=== PATIENT | female | born 1990 | race American Indian/Alaskan Native ===

== ENCOUNTER 2018-02-21 18:25 | Inpatient (IN) | payer MEDICAID ==
[2018-02-21] MEDS ORDERED: Sodium Chloride 0.9% 1,000 ML IV STA (19:42)
[2018-02-21 19:56] LABS: PH,URINE 6.5 (4.7-8.0); URINE APPEARANCE TURBID (CLEAR); URINE BILIRUBIN NEGATIVE (NEGATIVE); URINE BLOOD MODERATE (NEGATIVE); URINE COLOR YELLOW (YELLOW); URINE GLUCOSE (UA) NEGATIVE (NEGATIVE); URINE LEUKOCYTE ESTERASE SMALL Leu/uL (NEGATIVE); URINE PROTEIN 30 mg/dL (<30 mg/dL); URINE UROBILINOGEN 0.2 E.U./dL (<1 E.U./dL)
[2018-02-21 19:59] LABS: URINE RBC 25 - 30 /hpf (0-2)
[2018-02-21 20:00] LABS: URINE BACTERIA FEW (NEG); URINE WBC 25 - 30 /hpf (0-6)
[2018-02-21 20:12] LABS: BASO # 0.01 K/mm3 (0.0-2.0); BASO % 0.2 % (0.0-3.0); EOS # 0.1 (0.0-0.7); EOS % 1.4 % (1.5-5.0); GRAN # 4.58 (1.4-6.5); HEMOGLOBIN 12.8 g/dL (12.0-16.0); LYMPH # 1.2 (1.2-3.4); LYMPH % 18.1 % (22.0-35.0); MEAN CELL VOLUME 103.4 fl (80.0-105.0); MEAN CORPUSCULAR HEMOGLOBIN 35.9 pg (25.0-35.0); MEAN CORPUSCULAR HGB CONC 34.7 g/dl (31.0-37.0); MEAN PLATELET VOLUME 10.2 fl (7.0-11.0); MONO # 0.5 (0.1-0.6); MONO % 8.3 % (1.0-6.0); RBC 3.57 10^6/uL (3.5-6.1); RED CELL DISTRIBUTION WIDTH 13.6 % (11.5-14.5); WHITE BLOOD COUNT 6.4 10^3/ul (4.5-11.0)
[2018-02-21 20:24] LABS: ALB/GLOB RATIO 1.4 (1.1-1.8); ALBUMIN 4.6 g/dL (3.0-4.8); ALT/SGPT 34 U/L (7-56); AST/SGOT 56 U/L (14-36); BLOOD UREA NITROGEN 7 mg/dL (7-21); CALCIUM 9.6 mg/dL (8.4-10.5); GFR AFRICAN-AMERICAN > 60; GFR NON-AFRICAN AMERICAN > 60; LIPASE 1888 U/L (23-300)
[2018-02-21] MEDS ORDERED: Morphine 4 mg/ml ISec IVP STA (20:29)
[2018-02-21] MEDS ORDERED: Iohexol 350 MG/100 ML VIAL ONE (21:34)
--- NOTE | 2018-02-21 22:40 | ED PDOC ---
Arrival/HPI <Cortez Merchant - Last Filed: 02/21/18 22:59> - General Historian: Patient <Kenya Thomas - Last Filed: 02/22/18 00:03> - General Chief Complaint: Abdominal Pain Time Seen by Provider: 02/21/18 19:42 - History of Present Illness Narrative History of Present Illness (Text): 02/21/18 22:36 27-year-old female presents today with upper abdominal pain for the past 2 days. Patient describes a sharp achy pain with associated nausea and no vomiting. Patient also with 2 days of diarrhea. Patient denies fevers or chills at home. Patient does admit to drinking alcohol regularly. Patient denies any urinary symptoms. Denies bladder or bowel incontinence. Patient complaining of pain to the right upper back. Patient denies chest pain or shortness of breath. Patient denies sick contacts. No other complaints (Kenya Thomas) Past Medical History - Provider Review Nursing Documentation Reviewed: Yes - Travel History Have you recently traveled outside [place] w/in the past 3 mons?: No - Infectious Disease Hx of Infectious Diseases: None - Reproductive Menopause: No - Psychiatric Hx Substance Use: No - Anesthesia Hx Anesthesia: No <Kenya Thomas - Last Filed: 02/22/18 00:03> Family/Social History - Physician Review Nursing Documentation Reviewed: Yes Family/Social History: Unknown Family HX Smoking Status: Current Some Days Smoker Hx Alcohol Use: Yes Frequency of alcohol use: Socially Hx Substance Use: No <Kenya Thomas - Last Filed: 02/22/18 00:03> Allergies/Home Meds <Cortez Merchant - Last Filed: 02/21/18 22:59> <Kenya Thomas - Last Filed: 02/22/18 00:03> Allergies/Adverse Reactions: Allergies No Known Allergies Allergy (Verified 02/21/18 18:43) Home Medications: Home Meds Medication Instructions Recorded Confirmed Loratadine [Claritin] 10 mg PO DAILY 02/21/18 02/21/18 Review of Systems - Review of Systems Constitutional: absent: Fatigue, Fevers Respiratory: absent: SOB, Cough Cardiovascular: absent: Chest Pain, Palpitations Gastrointestinal: Abdominal Pain, Diarrhea, Nausea. absent: Constipation, Vomiting Genitourinary Female: absent: Dysuria, Frequency, Hematuria, Vaginal Bleeding, Vaginal Discharge Musculoskeletal: Back Pain. absent: Arthralgias, Neck Pain Skin: absent: Rash, Pruritis Neurological: absent: Headache, Dizziness Psychiatric: absent: Anxiety, Depression, Suicidal Ideation <Kenya Thomas - Last Filed: 02/22/18 00:03> Physical Exam Vital Signs Reviewed: Yes Temperature: Afebrile Blood Pressure: Normal Pulse: Regular Respiratory Rate: Normal Appearance: Positive for: Well-Appearing, Non-Toxic, Comfortable Pain Distress: None Mental Status: Positive for: Alert and Oriented X 3 - Systems Exam Head: Present: Atraumatic Mouth: Present: Moist Mucous Membranes Neck: Present: Normal Range of Motion Respiratory/Chest: Present: Clear to Auscultation, Good Air Exchange. No: Respiratory Distress, Accessory Muscle Use Cardiovascular: Present: Regular Rate and Rhythm, Normal S1, S2. No: Murmurs Abdomen: Present: Tenderness (Right upper quadrant tenderness, epigastric tenderness, left upper quadrant tenderness), Guarding. No: Distention, Peritoneal Signs, Rebound Back: Present: Normal Inspection, CVA Tenderness (Right sided CVA tenderness) Upper Extremity: Present: Normal ROM Lower Extremity: Present: Normal ROM Neurological: Present: GCS=15, Speech Normal Skin: Present: Warm, Dry, Normal Color. No: Rashes Psychiatric: Present: Alert, Oriented x 3 <Kenya Thomas - Last Filed: 02/22/18 00:03> Vital Signs Temp Pulse Resp BP Pulse Ox 02/21/18 18:56 98.9 F 84 18 131/93 H 99 02/21/18 18:40 98.8 F 77 20 123/89 98 Medical Decision Making <Cortez Merchant - Last Filed: 02/21/18 22:59> <Kenya Thomas - Last Filed: 02/22/18 00:03> ED Course and Treatment: 02/21/18 22:38 Patient is nontoxic well appearing with stable vital signs presenting with abdominal pain CBC wnl CMP K; 3.0 Lipase 1888 Urinalysis + blood, + leukocytes, + wbcs, CAT scan: FINDINGS: Lung bases: No consolidation. ABDOMEN: Liver: There is mild hypodense fatty infiltration of the liver. There is low density identified within the medial segment of the left lobe of the liver adjacent to the falciform ligament. This is a common location for fatty infiltration. Gallbladder and bile ducts: No calcified stones. No ductal dilation. Pancreas: There is stranding of the fat surrounding the pancreatic head, suggestive of acute pancreatitis. Spleen: No splenomegaly. Adrenals: No mass. Kidneys and ureters: No hydronephrosis. No solid mass. Stomach and bowel: There is additional stranding within the right upper quadrant and surrounding the duodenum, consistent with duodenitis. Additional right paracolic stranding is identified, with a small amount of free fluid within the right paracolic gutter. Colonic wall thickening is identified, significant involving the ascending colon and transverse colon. This is consistent with colitis. Appendix: No findings to suggest acute appendicitis. PELVIS: Bladder: There is mild wall thickening of the bladder, with increased trabeculation anteriorly. There is mild stranding of the fat surrounding the bladder. Cystitis is suggested. Reproductive: Hypodense follicles or small cysts are identified within the ovaries bilaterally. ABDOMEN and PELVIS: Intraperitoneal space: There is a small amount of free fluid within the pelvis. Bones/joints: A transitional vertebral body is identified at the lumbosacral junction. Soft tissues: There is minimal herniation of fat into the umbilicus. Vasculature: No abdominal aortic aneurysm. Lymph nodes: No enlarged lymph nodes. IMPRESSION: 1. There is stranding of the fat surrounding the pancreatic head, suggestive of acute pancreatitis. 2. There is additional stranding within the right upper quadrant and surrounding the duodenum, consistent with duodenitis. 3. Additional right paracolic stranding is identified, with a small amount of free fluid within the right paracolic gutter. Colonic wall thickening is identified, most significant involving the ascending colon and transverse colon. This is consistent with colitis. 4. There is mild wall thickening of the bladder, with increased trabeculation anteriorly. There is mild stranding of the fat surrounding the bladder. Cystitis is suggested. 5. Hypodense follicles or small cysts are identified within the ovaries bilaterally. 6. There is a small amount of free fluid within the pelvis. 7. There is mild hypodense fatty infiltration of the liver. 8. Incidental/non-acute findings are described above. Patient reassessment: pt feeling better; still with pain; blood cultures pending rocephin and flagyl started IV Discussed all results with patient in depth case discussed with dr. harrison; accepts admission. Impression: Pancreatitis, colitis, duodenitis, cystitis , Abdominal pain Admitted to [facility] ([facility]) - Lab Interpretations Lab Results: 02/21/18 19:55 02/21/18 19:55 Lab Results 02/21/18 19:55: WBC 6.4, RBC 3.57, Hgb 12.8, Hct 36.9, MCV 103.4, MCH 35.9 H, MCHC 34.7, RDW 13.6, Plt Count 150, MPV 10.2, Gran % 72.0 H, Lymph % (Auto) 18.1 L, [place] % (Auto) 8.3 H, Eos % (Auto) 1.4 L, Baso % (Auto) 0.2, Gran # 4.58 , Lymph # (Auto) 1.2, [place] # (Auto) 0.5, Eos # (Auto) 0.1, Baso # (Auto) 0.01 02/21/18 19:55: Sodium 140, Potassium 3.0 L, Chloride 101, Carbon Dioxide 26, Anion Gap 15, BUN 7, Creatinine 0.6 L, Est GFR ( Amer) > 60, Est GFR (Non -Af Amer) > 60, Random Glucose 100, Calcium 9.6, Total Bilirubin 1.0, AST 56 H, ALT 34, Alkaline Phosphatase 70, Total Protein 7.8, Albumin 4.6, Globulin 3.2, Albumin/Globulin Ratio 1.4, Lipase 1888 H 02/21/18 19:45: Urine Color Yellow, Urine Appearance Turbid, Urine pH 6.5, Ur Specific [place] 1.025, Urine Protein 30 H, Urine Glucose (UA) Negative, Urine Ketones Negative, Urine Blood Moderate H, Urine Nitrate Positive H, Urine Bilirubin Negative, Urine Urobilinogen 0.2, Ur Leukocyte Esterase Small H, Urine RBC 25 - 30, Urine WBC 25 - 30, Ur Epithelial Cells 6 - 8, Urine Bacteria Few - RAD Interpretation Radiology Orders: 02/21/18 20:29 ABD & PELVIS IV CONTRAST ONLY [CT] Stat - Medication Orders Current Medication Orders: Discontinued Medications Sodium Chloride (Sodium Chloride 0.9%) 1,000 mls @ 999 mls/hr IV .Q1H1M STA Stop: 02/21/18 20:42 Last Admin: 02/21/18 19:55 Dose: 999 mls/hr eMAR Start Stop Document 02/21/18 19:55 RG (Rec: 02/21/18 20:08 [id number]) Intravenous Solution Start Date 02/21/18 Start Time 19:55 Metronidazole (Flagyl) 500 mg in 100 mls @ 100 mls/hr IVPB STAT STA PRN Reason: Protocol Stop: 02/21/18 23:56 Ceftriaxone Sodium (Rocephin 1 Gram Ivpb) 1 gm in 100 mls @ 200 mls/hr IVPB STAT STA PRN Reason: Protocol Stop: 02/21/18 23:25 Last Admin: 02/21/18 23:54 Dose: 200 mls/hr eMAR Start Stop Document 02/21/18 23:54 RG (Rec: 02/21/18 23:54 [id number]) Intravenous Solution Start Date 02/21/18 Start Time 23:54 Morphine Sulfate (Morphine) 4 mg IVP STAT STA Stop: 02/21/18 20:30 Last Admin: 02/21/18 22:00 Dose: 4 mg MAR Pain Assessment Document 02/21/18 22:00 RG (Rec: 02/21/18 22:07 [id number]) Pain Reassessment Is this a pain reassessment? Yes IVP Administration Document 02/21/18 22:00 RG (Rec: 02/21/18 22:07 [id number]) Charges for Administration # of IVP Administrations 1 Ondansetron HCl (Zofran Inj) 4 mg IVP STAT STA Stop: 02/21/18 20:30 Last Admin: 02/21/18 20:45 Dose: 4 mg IVP Administration Document 02/21/18 20:45 RG (Rec: 02/21/18 23:54 [id number]) Charges for Administration # of IVP Administrations 1 Potassium Chloride (K-Dur 20 Meq Er Tab) 40 meq PO STAT STA Stop: 02/21/18 22:42 Last Admin: 02/21/18 23:52 Dose: 40 meq - PA / [employer] / Resident Statement RICK has reviewed & agrees with the documentation as recorded. RICK has examined the patient and agrees with the treatment plan. <Cortez Merchant - Last Filed: 02/21/18 22:59> Disposition/Present on Arrival <Cortez Merchant Filed: 02/21/18 22:59> - Present on Arrival Any Indicators Present on Arrival: No History of DVT/PE: No History of Uncontrolled Diabetes: No Urinary Catheter: No History of Decub. Ulcer: No History Surgical Site Infection Following: None - Disposition Have Diagnosis and Disposition been Completed?: Yes Disposition Time: 00:03 Patient Plan: Admission <Kenya Thomas - Last Filed: 02/22/18 00:03> - Disposition Diagnosis: Pancreatitis, Colitis, Duodenitis, Cystitis Disposition: HOSPITALIZED Condition: FAIR
[2018-02-21] MEDS ORDERED: Potassium Chloride 20 mEq ER Tab PO STA (22:41)
--- NOTE | 2018-02-21 22:52 | CT ---
EXAM: CT Abdomen and Pelvis With Intravenous Contrast EXAM DATE/TIME: 02/21/2018 8:29 PM CLINICAL HISTORY: The patient age is 27 years old and is female; Pain; Abdominal pain; Acute; Additional info: Abd pain Facility exam id and description: Ct abdpelciv abd pelvis iv contrast only TECHNIQUE: Axial computed tomography images of the abdomen and pelvis with intravenous contrast. All CT scans at this facility use one or more dose reduction techniques, viz.: automated exposure control; ma/kV adjustment per patient size (including targeted exams where dose is matched to indication; i.e. head); or iterative reconstruction technique. Coronal and sagittal reformatted images were created and reviewed. CONTRAST: 100 mL of OMNI 350 administered intravenously. COMPARISON: No relevant prior studies available. FINDINGS: Lung bases: No consolidation. ABDOMEN: Liver: There is mild hypodense fatty infiltration of the liver. There is low density identified within the medial segment of the left lobe of the liver adjacent to the falciform ligament. This is a common location for fatty infiltration. Gallbladder and bile ducts: No calcified stones. No ductal dilation. Pancreas: There is stranding of the fat surrounding the pancreatic head, suggestive of acute pancreatitis. Spleen: No splenomegaly. Adrenals: No mass. Kidneys and ureters: No hydronephrosis. No solid mass. Stomach and bowel: There is additional stranding within the right upper quadrant and surrounding the duodenum, consistent with duodenitis. Additional right paracolic stranding is identified, with a small amount of free fluid within the right paracolic gutter. Colonic wall thickening is identified, significant involving the ascending colon and transverse colon. This is consistent with colitis. Appendix: No findings to suggest acute appendicitis. PELVIS: Bladder: There is mild wall thickening of the bladder, with increased trabeculation anteriorly. There is mild stranding of the fat surrounding the bladder. Cystitis is suggested. Reproductive: Hypodense follicles or small cysts are identified within the ovaries bilaterally. ABDOMEN and PELVIS: Intraperitoneal space: There is a small amount of free fluid within the pelvis. Bones/joints: A transitional vertebral body is identified at the lumbosacral junction. Soft tissues: There is minimal herniation of fat into the umbilicus. Vasculature: No abdominal aortic aneurysm. Lymph nodes: No enlarged lymph nodes. IMPRESSION: 1. There is stranding of the fat surrounding the pancreatic head, suggestive of acute pancreatitis. 2. There is additional stranding within the right upper quadrant and surrounding the duodenum, consistent with duodenitis. 3. Additional right paracolic stranding is identified, with a small amount of free fluid within the right paracolic gutter. Colonic wall thickening is identified, most significant involving the ascending colon and transverse colon. This is consistent with colitis. 4. There is mild wall thickening of the bladder, with increased trabeculation anteriorly. There is mild stranding of the fat surrounding the bladder. Cystitis is suggested. 5. Hypodense follicles or small cysts are identified within the ovaries bilaterally. 6. There is a small amount of free fluid within the pelvis. 7. There is mild hypodense fatty infiltration of the liver. 8. Incidental/non-acute findings are described above.
[2018-02-21] MEDS ORDERED: cefTRIAXone 1 gm 1 GM/100 ML BAG IVPB STA (22:56)
[2018-02-21] MEDS ORDERED: metroNIDAZOLE IV 500 mg/100 ml 500 MG/100 ML BAG IVPB STA (22:57)
[2018-02-22] MEDS ORDERED: Sodium Chloride 0.9% 1,000 ML IV SCH
--- NOTE | 2018-02-22 00:09 | CP.PCM.HP ---
<Cat Navarro - Last Filed: 02/22/18 06:09> History of Present Illness - History of Present Illness History of Present Illness: Cat Navarro, PGY1, H&P for Dr Preciado: CC: epigastric pain 27-year-old female presents with hx of endometriosis, presents for epigastric pain for past 2 days. Pt describes it as stabbing in nature, occurred while lying in bed, radiating to the back, has associated poor appetite as pain is associated with eating, 2-3 episodes of watery, nonbloody diarrhea and lower abdominal pain. Patient's diet mostly consists of fried foods. Denies nausea, vomiting, fever, chills, cp, sob, dysuria, hematuria, leg swelling, headache, neck pain. Reports mild urinary frequency. Denies sick contacts or unusual foods. Pt recently moved from [place] a month ago. No prior EGD or colonoscopy. Pt denies prior such episodes. In ED, afebrile, other vitals stable. K 3.0, lipase 1888, AST 56, UA+ mild infection. CT abd pelvis showed acute pancreatitis, colitis, duodenitis, cystitis. Given flagyl, rocephin, morphine, zofran, 1L NS bolus, Kdur 40 LMP: 02/05/2018, regular currently, lasting 3-4 days 12 point ROS obtained and negative, except as per HPI. PMH: endometrisosis (dx at age 12) PSH: denies NKA FH: DM SH: Lives with son. heavy ETOH use, 1 pint white liquor/day for past month, more increased than her usual, drinker for past 8 years. Denies tobacco or illicit drug use. PMD: none Present on Admission - Present on Admission Any Indicators Present on Admission: No History of DVT/PE: No History of Uncontrolled Diabetes: No Urinary Catheter: No Decubitus Ulcer Present: No Review of Systems - Review of Systems All systems: reviewed and no additional remarkable complaints except Review of Systems: as per HPI Past Patient History - Infectious Disease Hx of Infectious Diseases: None - Past Social History Smoking Status: Current Some Days Smoker - PSYCHIATRIC Hx Substance Use: No - SURGICAL HISTORY Hx Surgeries: No - ANESTHESIA Hx Anesthesia: No Meds Allergies/Adverse Reactions: Allergies Allergy/AdvReac Type Severity Reaction Status Date / Time No Known Allergies Allergy Verified 02/21/18 18:43 Physical Exam - Constitutional Appears: Non-toxic, No Acute Distress - Head Exam Head Exam: ATRAUMATIC, NORMOCEPHALIC - Eye Exam Eye Exam: EOMI, PERRL. absent: Conjunctival injection, Nystagmus, Scleral icterus Pupil Exam: NORMAL ACCOMODATION, PERRL. absent: Fixed, Irregular, Miosis, Mydriatic, Unequal - ENT Exam ENT Exam: Mucous Membranes Moist - Neck Exam Neck exam: Positive for: Full Rom - Respiratory Exam Respiratory Exam: Clear to Auscultation Bilateral, NORMAL BREATHING PATTERN. absent: Accessory Muscle Use, Chest Wall Tenderness, Rales, Rhonchi, Wheezes, Stridor - Cardiovascular Exam Cardiovascular Exam: RRR, +S1, +S2. absent: Bradycardia, Tachycardia, Rubs, Systolic Murmur - GI/Abdominal Exam GI & Abdominal Exam: Hypoactive Bowel Sounds, Soft, Tenderness (Mild TTP diffusely in abdomen, especially epigastric and lower abdominal areas). absent : Distended, Firm, Guarding, Mass, Organomegaly, Rebound, Rigid - Extremities Exam Extremities exam: Positive for: normal inspection. Negative for: calf tenderness, pedal edema - Back Exam Back exam: NORMAL INSPECTION. absent: CVA tenderness (L), CVA tenderness (R) - Neurological Exam Neurological exam: Alert, Oriented x3 - Psychiatric Exam Psychiatric exam: Normal Affect, Normal Mood - Skin Skin Exam: Dry, Normal Color, Warm Results - Vital Signs Recent Vital Signs: Last Vital Signs Temp 98.9 F 02/21/18 18:56 Pulse 84 02/21/18 18:56 Resp 18 02/21/18 18:56 BP 131/93 H 02/21/18 18:56 Pulse Ox 99 02/21/18 18:56 - Labs Result Diagrams: 02/21/18 19:55 02/21/18 19:55 Assessment & Plan - Assessment and Plan (Free Text) Assessment: 27 year old female with hx of endometriosis (dx at age 9), presents for epigastric and lower abdominal pain: Epigastric pain: 2/2 acute pancreatitis (likely 2/2 alcohol vs hyperlipidemia? vs less likely gallstones) vs duodenitis - NPO - CT abd pelvis: stranding of the fat surrounding the pancreatic head, suggestive of acute pancreatitis. stranding within the right upper quadrant and surrounding the duodenum, consistent with duodenitis. - 1L NS bolus in ED. IVF at 150 - Pain control - daily cbc, cmp - lipid panel - replace lytes as needed - RUQ US - Rocephin and Flagyl Lower abdominal pain: 2/2 colitis vs UTI - CT abd pelvis: right paracolic stranding is identified, with a small amount of free fluid within the right paracolic gutter. Colonic wall thickening is identified, most significant involving the ascending colon and transverse colon. This is consistent with colitis. mild wall thickening of the bladder, with increased trabeculation anteriorly. There is mild stranding of the fat surrounding the bladder. a small amount of free fluid within the pelvis. Cystitis is suggested. mild hypodense fatty infiltration of the liver. - UA + infection - Rocephin and Flagyl - GI consulted. F/u recs. - NPO Fatty infiltration of liver: - AST:ALT ratio 2:1 - likely alcohol induced - avoid hepatotoxic drugs - RUQ US - hep panel Hx of alcohol abuse: - Last drink reportedly Tuesday. No withdrawals noted - Advised cessation PPX: protonix, SCDs Discussed with Dr Preciado. - Date & Time Date: 02/22/18 Time: 00:46 <Marylin Preciado - Last Filed: 02/22/18 06:15> Results - Vital Signs Recent Vital Signs: Last Vital Signs Temp 98.1 F 02/22/18 00:00 Pulse 74 02/22/18 00:00 Resp 16 02/22/18 00:00 BP 137/90 02/22/18 00:00 Pulse Ox 100 02/22/18 00:00 - Labs Result Diagrams: 02/21/18 19:55 02/21/18 19:55 Labs: Laboratory Results - last 24 hr 02/22/18 00:20 Urine Opiates Screen Negative Urine Methadone Screen Negative Ur Barbiturates Screen Negative Ur Phencyclidine Scrn Negative Ur Amphetamines Screen Negative U Benzodiazepines Scrn Negative U Oth Cocaine Metabols Negative U Cannabinoids Screen Negative Attending/Attestation - Attestation I have personally seen and examined this patient.: Yes I have fully participated in the care of the patient.: Yes I have reviewed all pertinent clinical information: Yes Notes (Text): 02/22/18 06:12 Agree with documentation and orders placed.
[2018-02-22 02:29] LABS: BARBITURATES, UR NEGATIVE (NEGATIVE); BENZODIAZEPINES, UR NEGATIVE (NEGATIVE); OPIATES, UR NEGATIVE (NEGATIVE); PHENCYCLIDINE, UR NEGATIVE (NEGATIVE)
[2018-02-22] MEDS: metroNIDAZOLE IV 500 mg/100 ml 500 MG/100 ML BAG IVPB SCH ×2 (05:53→13:28)
[2018-02-22 07:45] VITALS: RESP 20
--- NOTE | 2018-02-22 08:42 | CP.PCM.CON ---
<Antonio Negron - Last Filed: 02/22/18 08:29> History of Present Illness - History of Present Illness History of Present Illness: PGY4 Initial GI Consult Paige Summers Awilda Choe is a 27F w/ hx of ETOH use who presents to the hospital with complaints of abd pain. Pt states that the pain started a few days and ago. She states that the pain is located in the epigastric area, radiating to the back and lowr abd. She states that she has been drinking at least 1 pint of vodka daily for the past month. She denies any previous hospitalizations for pancreas and liver related issues. Currently in the morning , she notes that her abd pain has improved, but still present. Denies any nausea , vomiting or diarrhea. PMHx: None PSHx: none Family hx: reviewed; denies any hx of GI malignancies Social Hx: +ETOH 1 pint daily. + smoking, rec marijuana Endo hx: denies ROS: 12 point ROS conducted, neg other than above Past Patient History - Infectious Disease Hx of Infectious Diseases: None - Past Social History Smoking Status: Current Some Days Smoker - CARDIAC Hx Cardiac Disorders: No - PULMONARY Hx Respiratory Disorders: No - NEUROLOGICAL Hx Neurological Disorder: No - HEENT Hx HEENT Problems: No - RENAL Hx Chronic Kidney Disease: No - ENDOCRINE/METABOLIC Hx Endocrine Disorders: No - HEMATOLOGICAL/ONCOLOGICAL Hx Blood Disorders: No - INTEGUMENTARY Hx Dermatological Problems: No - MUSCULOSKELETAL/RHEUMATOLOGICAL Hx Musculoskeletal Disorders: No Hx Falls: No - GASTROINTESTINAL Hx Gastrointestinal Disorders: No - GENITOURINARY/GYNECOLOGICAL Hx Genitourinary Disorders: No - PSYCHIATRIC Hx Substance Use: No - SURGICAL HISTORY Hx Surgeries: No - ANESTHESIA Hx Anesthesia: No Meds Allergies/Adverse Reactions: Allergies Allergy/AdvReac Type Severity Reaction Status Date / Time No Known Allergies Allergy Verified 02/21/18 18:43 - Medications Medications: Current Medications Metronidazole (Flagyl) 500 mg in 100 mls @ 100 mls/hr IVPB Q8 JONE PRN Reason: Protocol Last Admin: 02/22/18 05:53 Dose: 100 mls/hr Ceftriaxone Sodium (Rocephin 1 Gram Ivpb) 1 gm in 100 mls @ 100 mls/hr IVPB DAILY JONE PRN Reason: Protocol Sodium Chloride (Sodium Chloride 0.9%) 1,000 mls @ 200 mls/hr IV .Q5H JONE Ketorolac Tromethamine (Toradol) 15 mg IVP Q4H PRN PRN Reason: Pain, moderate (4-7) Last Admin: 02/22/18 05:53 Dose: 15 mg Pantoprazole Sodium (Protonix Inj) 40 mg IVP DAILY [facility] Physical Exam - Constitutional Appears: Well, No Acute Distress - Head Exam Head Exam: ATRAUMATIC, NORMOCEPHALIC - Eye Exam Eye Exam: Normal appearance - ENT Exam ENT Exam: Mucous Membranes Moist, Normal Exam - Neck Exam Neck exam: Positive for: Normal Inspection - Respiratory Exam Respiratory Exam: Clear to Auscultation Bilateral, NORMAL BREATHING PATTERN. absent: Chest Wall Tenderness, Decreased Breath Sounds, Rales, Rhonchi, Wheezes , Respiratory Distress - Cardiovascular Exam Cardiovascular Exam: REGULAR RHYTHM, +S1, +S2 - GI/Abdominal Exam GI & Abdominal Exam: Normal Bowel Sounds, Soft, Tenderness. absent: Distended, Firm, Guarding, Rebound, Rigid - Neurological Exam Neurological exam: Alert, Oriented x3 - Psychiatric Exam Psychiatric exam: Normal Affect, Normal Mood - Skin Skin Exam: Dry, Intact, Normal Color, Warm Results - Vital Signs Recent Vital Signs: Last Vital Signs Temp 98.1 F 02/22/18 07:44 Pulse 65 02/22/18 07:44 Resp 20 02/22/18 07:44 BP 119/90 02/22/18 07:44 Pulse Ox 98 02/22/18 07:44 - Labs Result Diagrams: 02/21/18 19:55 02/21/18 19:55 Labs: Laboratory Results - last 24 hr 02/22/18 00:20 Urine Opiates Screen Negative Urine Methadone Screen Negative Ur Barbiturates Screen Negative Ur Phencyclidine Scrn Negative Ur Amphetamines Screen Negative U Benzodiazepines Scrn Negative U Oth Cocaine Metabols Negative U Cannabinoids Screen Negative Assessment & Plan - Assessment and Plan (Free Text) Assessment: This pt is a 27F w/ no hx of ETOH use who presents to the office with abd in the epigastric area Pancreatitis, likely 2/2 ETOH; r/o cholelithiasis, choledolcalithiasis ETOH abuse Plan: -start liquid diet, can advance as tolerated -Abd U/S pending -continue IV fluids -pain management as per primary team -will send for TG -no new medications -discussed ETOH avoidance D/W Dr. Avila <[email or web address] Y - Last Filed: 02/22/18 14:11> Meds - Medications Medications: Current Medications Metronidazole (Flagyl) 500 mg in 100 mls @ 100 mls/hr IVPB Q8 JONE PRN Reason: Protocol Last Admin: 02/22/18 13:28 Dose: 100 mls/hr Ceftriaxone Sodium (Rocephin 1 Gram Ivpb) 1 gm in 100 mls @ 100 mls/hr IVPB DAILY JONE PRN Reason: Protocol Last Admin: 02/22/18 10:41 Dose: 100 mls/hr Sodium Chloride (Sodium Chloride 0.9%) 1,000 mls @ 200 mls/hr IV .Q5H JONE Ketorolac Tromethamine (Toradol) 15 mg IVP Q4H PRN PRN Reason: Pain, moderate (4-7) Last Admin: 02/22/18 10:41 Dose: 15 mg Pantoprazole Sodium (Protonix Inj) 40 mg IVP DAILY [facility] Last Admin: 02/22/18 10:36 Dose: 40 mg Results - Vital Signs Recent Vital Signs: Last Vital Signs Temp 98.1 F 02/22/18 07:44 Pulse 65 02/22/18 07:44 Resp 20 02/22/18 07:44 BP 119/90 02/22/18 07:44 Pulse Ox 98 02/22/18 07:44 - Labs Result Diagrams: 02/22/18 09:30 02/22/18 09:30 Labs: Laboratory Results - last 24 hr 02/22/18 02/22/18 02/22/18 00:20 09:30 09:30 WBC 5.4 RBC 3.29 L Hgb 11.7 L Hct 34.4 L MCV 104.6 MCH 35.6 H MCHC 34.0 RDW 13.8 Plt Count 151 MPV 10.5 Gran % 60.5 Lymph % (Auto) 27.5 [place] % (Auto) 9.2 H Eos % (Auto) 2.6 Baso % (Auto) 0.2 Gran # 3.28 Lymph # (Auto) 1.5 [place] # (Auto) 0.5 Eos # (Auto) 0.1 Baso # (Auto) 0.01 Sodium 141 Potassium 3.2 L Chloride 106 Carbon Dioxide 26 Anion Gap 12 BUN 6 L Creatinine 0.6 L Est GFR ( Amer) > 60 Est GFR (Non-Af Amer) > 60 Random Glucose 93 Calcium 8.9 Magnesium Total Bilirubin 0.8 AST 46 H ALT 32 Alkaline Phosphatase 61 Total Protein 7.2 Albumin 4.2 Globulin 3.0 Albumin/Globulin Ratio 1.4 Triglycerides 54 Cholesterol 173 LDL Cholesterol Direct 64 HDL Cholesterol 96 H Urine Opiates Screen Negative Urine Methadone Screen Negative Ur Barbiturates Screen Negative Ur Phencyclidine Scrn Negative Ur Amphetamines Screen Negative U Benzodiazepines Scrn Negative U Oth Cocaine Metabols Negative U Cannabinoids Screen Negative 02/22/18 10:00 WBC RBC Hgb Hct MCV MCH MCHC RDW Plt Count MPV Gran % Lymph % (Auto) [place] % (Auto) Eos % (Auto) Baso % (Auto) Gran # Lymph # (Auto) [place] # (Auto) Eos # (Auto) Baso # (Auto) Sodium Potassium Chloride Carbon Dioxide Anion Gap BUN Creatinine Est GFR ( Amer) Est GFR (Non-Af Amer) Random Glucose Calcium Magnesium 1.7 Total Bilirubin AST ALT Alkaline Phosphatase Total Protein Albumin Globulin Albumin/Globulin Ratio Triglycerides Cholesterol LDL Cholesterol Direct HDL Cholesterol Urine Opiates Screen Urine Methadone Screen Ur Barbiturates Screen Ur Phencyclidine Scrn Ur Amphetamines Screen U Benzodiazepines Scrn U Oth Cocaine Metabols U Cannabinoids Screen Attending/Attestation - Attestation I have personally seen and examined this patient.: Yes I have fully participated in the care of the patient.: Yes I have reviewed all pertinent clinical information: Yes Notes (Text): 02/22/18 14:05 I have seen and examined patient with GI fellow. Agree with above documentation with the following additions. In brief, this is a 27 year old female with history of recent ETOH abuse who presents to hospital with complaint of sharp epigastric/right sided abdominal pain which began 3 days ago. She describes the pain as 10/10 intensity with radiation to back and worse after meal consumption. She admits to recent daily ETOH consumption for the past month and consumes 1 pint of liquor daily related to life stressors. She denies associated nausea, vomiting, fever/chills, weight loss, or change in bowel habits. No prior hospitalization for similar issues. No prior endoscopic evaluation. Review of vitals from today are normal. Additional physical examination: Abdomen: no palpable hepato/splenomegaly Abdominal pain Acute ETOH pancreatitis CT imaging reviewed by me showing jessica-pancreatic edema with stranding predominantly at HOP. Also noted is colitis, though likely reactive inflammatory response from pancreatitis. - Liquid diet as tolerated - IVF hydration, pain control, supportive care - Follow up results of abdominal US, rule out cholelithiasis - No clinical indication for antibiotic therapy, would discontinue. Colitis present on imaging likely reactive inflammatory response. - ETOH cessation counseling - Will continue to monitor patient clinical course
--- NOTE | 2018-02-22 09:41 | US ---
HISTORY: RUQ abdominal US, pancreatitis COMPARISON: None. TECHNIQUE: Sonographic evaluation of the abdomen. FINDINGS: LIVER: Measures 17.2 cm. Patent portal vein. Portal venous flow: Hepatopetal. Unremarkable echogenicity of the liver parenchyma. No mass. No intrahepatic bile duct dilatation. GALLBLADDER: Unremarkable. No gallstones. COMMON BILE DUCT: Measures 3.9 mm. No stones. No dilatation. PANCREAS: Unremarkable as visualized. No mass. No ductal dilatation. RIGHT KIDNEY: Measures 4.3 x 10.9cm. Normal echogenicity. No calculus, mass, or hydronephrosis. LEFT KIDNEY: Measures 5.2 x 10.7cm. Normal echogenicity. No calculus, mass, or hydronephrosis. SPLEEN: Normal in size and contour. No mass. AORTA: No aneurysmal dilatation. IVC: Unremarkable. OTHER FINDINGS: None. IMPRESSION: Unremarkable abdominal sonogram.
[2018-02-22 09:45] LABS: ALB/GLOB RATIO 1.4 (1.1-1.8); ALBUMIN 4.2 g/dL (3.0-4.8); ALT/SGPT 32 U/L (7-56); AST/SGOT 46 U/L (14-36); BASO # 0.01 K/mm3 (0.0-2.0); BASO % 0.2 % (0.0-3.0); BLOOD UREA NITROGEN 6 mg/dL (7-21); CALCIUM 8.9 mg/dL (8.4-10.5); EOS # 0.1 (0.0-0.7); EOS % 2.6 % (1.5-5.0); GFR AFRICAN-AMERICAN > 60; GFR NON-AFRICAN AMERICAN > 60; GRAN # 3.28 (1.4-6.5); GRAN % 60.5 % (50.0-68.0); HDL CHOLESTEROL 96 mg/dL (29-60); HEMOGLOBIN 11.7 g/dL (12.0-16.0); LYMPH # 1.5 (1.2-3.4); LYMPH % 27.5 % (22.0-35.0); MEAN CELL VOLUME 104.6 fl (80.0-105.0); MEAN CORPUSCULAR HEMOGLOBIN 35.6 pg (25.0-35.0); MEAN PLATELET VOLUME 10.5 fl (7.0-11.0); MONO # 0.5 (0.1-0.6); MONO % 9.2 % (1.0-6.0); RBC 3.29 10^6/uL (3.5-6.1); RED CELL DISTRIBUTION WIDTH 13.8 % (11.5-14.5); WHITE BLOOD COUNT 5.4 10^3/ul (4.5-11.0)
[2018-02-22 09:56] LABS: LDL CHOLESTEROL 64 mg/dL (0-129)
[2018-02-22] MEDS ORDERED: Potassium Chloride 40 mEq/30 ml LIQ UD PO ONE (10:00)
[2018-02-22] MEDS: cefTRIAXone 1 gm 1 GM/100 ML BAG IVPB SCH (10:41)
[2018-02-22 12:30] LABS: HEPATITIS B SURFACE AG Negative (NEGATIVE)
[2018-02-22 12:36] LABS: HEPATITIS A IGM NEGATIVE (NEGATIVE); HEPATITIS B CORE AB NEGATIVE (NEGATIVE)
[2018-02-22 12:47] LABS: HEPATITIS C ANTIBODY NEGATIVE (NEGATIVE)
[2018-02-22] MEDS: Sodium Chloride 0.9% 1,000 ML IV SCH ×2 (17:36→23:58)
[2018-02-23] MEDS: Sodium Chloride 0.9% 1,000 ML IV SCH (02:30)
[2018-02-23 07:40] LABS: BASO # 0.01 K/mm3 (0.0-2.0); BASO % 0.1 % (0.0-3.0); EOS # 0.2 (0.0-0.7); EOS % 2.4 % (1.5-5.0); GRAN # 5.75 (1.4-6.5); GRAN % 76.1 % (50.0-68.0); HEMOGLOBIN 11.3 g/dL (12.0-16.0); LYMPH % 13.6 % (22.0-35.0); MEAN CELL VOLUME 103.1 fl (80.0-105.0); MEAN CORPUSCULAR HEMOGLOBIN 35.4 pg (25.0-35.0); MEAN CORPUSCULAR HGB CONC 34.3 g/dl (31.0-37.0); MEAN PLATELET VOLUME 10.4 fl (7.0-11.0); MONO # 0.6 (0.1-0.6); MONO % 7.8 % (1.0-6.0); RBC 3.19 10^6/uL (3.5-6.1); RED CELL DISTRIBUTION WIDTH 13.8 % (11.5-14.5); WHITE BLOOD COUNT 7.6 10^3/ul (4.5-11.0)
[2018-02-23 07:52] LABS: BLOOD UREA NITROGEN < 2 mg/dL (7-21); GFR AFRICAN-AMERICAN > 60; GFR NON-AFRICAN AMERICAN > 60
[2018-02-23 07:53] LABS: ALB/GLOB RATIO 1.3 (1.1-1.8); ALBUMIN 3.8 g/dL (3.0-4.8); ALT/SGPT 35 U/L (7-56); AST/SGOT 67 U/L (14-36); CALCIUM 8.6 mg/dL (8.4-10.5)
[2018-02-23] MEDS ORDERED: Potassium Chloride 40 mEq/30 ml LIQ UD PO ONE (08:22)
[2018-02-23 08:48] VITALS: O2SAT 99
--- NOTE | 2018-02-23 10:32 | CP.PCM.PN ---
<Antonio Negron - Last Filed: 02/23/18 10:56> Subjective - Date & Time of Evaluation Date of Evaluation: 02/23/18 Time of Evaluation: 08:00 - Subjective Subjective: PGY4 GI Follow-up Note Pt seen and examined bedside still complaining of epigastric pain, but improved tolerated liquid diet denies any BM ROS: 10 point ROS conducted, neg other than above Objective - Vital Signs/Intake and Output Vital Signs (last 24 hours): Temp Pulse Resp BP Pulse Ox 98.6 F 72 20 128/86 99 02/23/18 06:00 02/23/18 06:00 02/23/18 06:00 02/23/18 06:00 02/23/18 06:00 Intake and Output: 02/23/18 02/23/18 06:59 18:59 Intake Total 2940 Balance 2940 - Medications Medications: Current Medications Ceftriaxone Sodium (Rocephin 1 Gram Ivpb) 1 gm in 100 mls @ 100 mls/hr IVPB DAILY JONE PRN Reason: Protocol Last Admin: 02/22/18 10:41 Dose: 100 mls/hr Sodium Chloride (Sodium Chloride 0.9%) 1,000 mls @ 200 mls/hr IV .Q5H [facility] Last Admin: 02/23/18 02:30 Dose: 200 mls/hr Ketorolac Tromethamine (Toradol) 15 mg IVP Q4H PRN PRN Reason: Pain, moderate (4-7) Last Admin: 02/23/18 08:45 Dose: 15 mg Pantoprazole Sodium (Protonix Inj) 40 mg IVP DAILY [facility] Last Admin: 02/22/18 10:36 Dose: 40 mg - Labs Labs: 02/23/18 07:00 02/23/18 06:30 - Constitutional Appears: Well, No Acute Distress - Head Exam Head Exam: ATRAUMATIC, NORMOCEPHALIC - ENT Exam ENT Exam: Mucous Membranes Moist, Normal Exam - Neck Exam Neck Exam: Normal Inspection - Respiratory Exam Respiratory Exam: Clear to Ausculation Bilateral, NORMAL BREATHING PATTERN. absent: Rales, Rhonchi, Wheezes, Respiratory Distress - Cardiovascular Exam Cardiovascular Exam: REGULAR RHYTHM, +S1, +S2 - GI/Abdominal Exam GI & Abdominal Exam: Soft, Normal Bowel Sounds. absent: Distended, Firm, Guarding, Rigid, Tenderness - Extremities Exam Extremities Exam: absent: Joint Swelling, Pedal Edema - Neurological Exam Neurological Exam: Alert, Awake, Oriented x3 - Psychiatric Exam Psychiatric exam: Normal Affect, Normal Mood - Skin Skin Exam: Dry, Intact, Normal Color, Warm Assessment and Plan - Assessment and Plan (Free Text) Assessment: This pt is a 27F w/ no hx of ETOH use who presents to the office with abd in the epigastric area Pancreatitis, likely 2/2 ETOH; r/o cholelithiasis, choledolcalithiasis ETOH abuse Plan: -can advance as tolerated to low fat -Abd U/S revealed no gallstones or biliary disease -continue IV fluids -pain management as per primary team -TG WNL -no new medications -discussed ETOH avoidance -can deescalate fluids D/W Dr. Flores <Chris Flores - Last Filed: 02/23/18 11:38> Objective - Vital Signs/Intake and Output Vital Signs (last 24 hours): Temp Pulse Resp BP Pulse Ox 98.6 F 72 20 128/86 99 02/23/18 06:00 02/23/18 06:00 02/23/18 06:00 02/23/18 06:00 02/23/18 06:00 Intake and Output: 02/23/18 02/23/18 06:59 18:59 Intake Total 2940 Balance 2940 - Medications Medications: Current Medications Ceftriaxone Sodium (Rocephin 1 Gram Ivpb) 1 gm in 100 mls @ 100 mls/hr IVPB DAILY [facility] PRN Reason: Protocol Last Admin: 02/23/18 10:57 Dose: 100 mls/hr Sodium Chloride (Sodium Chloride 0.9%) 1,000 mls @ 150 mls/hr IV .Q6H40M [facility] Ketorolac Tromethamine (Toradol) 15 mg IVP Q4H PRN PRN Reason: Pain, moderate (4-7) Last Admin: 02/23/18 08:45 Dose: 15 mg Pantoprazole Sodium (Protonix Inj) 40 mg IVP DAILY [facility] Last Admin: 02/23/18 10:57 Dose: 40 mg - Labs Labs: 02/23/18 07:00 02/23/18 06:30 Attending/Attestation - Attestation I have personally seen and examined this patient.: Yes I have fully participated in the care of the patient.: Yes I have reviewed all pertinent clinical information, including history, physical exam and plan: Yes Notes (Text): 02/23/18 11:37 27 year old female with h/o etoh abuse admitted with acute pancreatitis. Received IV hydration. Pancreatitis is mild. Slowly improving. Advance diet to low fat. Pain meds as needed. US negative for gallstones. Negative trig. Etoh cessation advised. Will sign off.
[2018-02-23] MEDS: cefTRIAXone 1 gm 1 GM/100 ML BAG IVPB SCH (10:57)
[2018-02-23] MEDS ORDERED: Sodium Chloride 0.9% 1,000 ML IV SCH (10:57)
--- NOTE | 2018-02-23 12:31 | CP.PCM.DIS ---
<Eric Negron - Last Filed: 02/23/18 12:50> Provider - Provider Date of Admission: 02/21/18 23:00 Attending physician: Agapito Fischer MD Primary care physician: NO PRIMARY CARE PROVIDER Time Spent in preparation of Discharge (in minutes): 45 Diagnosis - Discharge Diagnosis (1) Pancreatitis Status: Acute Priority: Medium (2) UTI (urinary tract infection) Status: Acute Priority: Medium (3) Alcohol abuse Status: Chronic Priority: Medium Hospital Course - Lab Results Lab Results: Most Recent Lab Values WBC 7.6 10^3/ul (4.5-11.0) D 02/23/18 07:00 RBC 3.19 10^6/uL (3.5-6.1) L 02/23/18 07:00 Hgb 11.3 g/dL (12.0-16.0) L 02/23/18 07:00 Hct 32.9 % (36.0-48.0) L 02/23/18 07:00 MCV 103.1 fl (80.0-105.0) 02/23/18 07:00 MCH 35.4 pg (25.0-35.0) H 02/23/18 07:00 MCHC 34.3 g/dl (31.0-37.0) 02/23/18 07:00 RDW 13.8 % (11.5-14.5) 02/23/18 07:00 Plt Count 164 10^3/uL (120.0-450.0) 02/23/18 07:00 MPV 10.4 fl (7.0-11.0) 02/23/18 07:00 Gran % 76.1 % (50.0-68.0) H 02/23/18 07:00 Lymph % (Auto) 13.6 % (22.0-35.0) L 02/23/18 07:00 Jun[place] % (Auto) 7.8 % (1.0-6.0) H 02/23/18 07:00 Eos % (Auto) 2.4 % (1.5-5.0) 02/23/18 07:00 Baso % (Auto) 0.1 % (0.0-3.0) 02/23/18 07:00 Gran # 5.75 (1.4-6.5) 02/23/18 07:00 Lymph # (Auto) 1.0 (1.2-3.4) L 02/23/18 07:00 Jun[place] # (Auto) 0.6 (0.1-0.6) 02/23/18 07:00 Eos # (Auto) 0.2 (0.0-0.7) 02/23/18 07:00 Baso # (Auto) 0.01 K/mm3 (0.0-2.0) 02/23/18 07:00 Sodium 139 mmol/L (132-148) 02/23/18 06:30 Potassium 3.5 mmol/L (3.6-5.0) L 02/23/18 06:30 Chloride 104 mmol/L (98-107) 02/23/18 06:30 Carbon Dioxide 27 mmol/L (21-33) 02/23/18 06:30 Anion Gap 12 (10-20) 02/23/18 06:30 BUN < 2 mg/dL (7-21) L 02/23/18 06:30 Creatinine 0.6 mg/dl (0.7-1.2) L 02/23/18 06:30 Est GFR ( Amer) > 60 02/23/18 06:30 Est GFR (Non-Af Amer) > 60 02/23/18 06:30 Random Glucose 96 mg/dL (70-110) 02/23/18 06:30 Calcium 8.6 mg/dL (8.4-10.5) 02/23/18 06:30 Magnesium 1.7 mg/dL (1.7-2.2) 02/22/18 10:00 Total Bilirubin 0.5 mg/dL (0.2-1.3) 02/23/18 06:30 AST 67 U/L (14-36) H D 02/23/18 06:30 ALT 35 U/L (7-56) 02/23/18 06:30 Alkaline Phosphatase 63 U/L (38-126) 02/23/18 06:30 Total Protein 6.7 g/dL (5.8-8.3) 02/23/18 06:30 Albumin 3.8 g/dL (3.0-4.8) 02/23/18 06:30 Globulin 2.9 gm/dL 02/23/18 06:30 Albumin/Globulin Ratio 1.3 (1.1-1.8) 02/23/18 06:30 Triglycerides 54 mg/dL (35-160) 02/22/18 09:30 Cholesterol 173 mg/dL (130-200) 02/22/18 09:30 LDL Cholesterol Direct 64 mg/dL (0-129) 02/22/18 09:30 HDL Cholesterol 96 mg/dL (29-60) H 02/22/18 09:30 Lipase 1888 U/L (23-300) H 02/21/18 19:55 Urine Color Yellow (YELLOW) 02/21/18 19:45 Urine Appearance Turbid (CLEAR) 02/21/18 19:45 Urine pH 6.5 (4.7-8.0) 02/21/18 19:45 Ur Specific Hume 1.025 (1.005-1.035) 02/21/18 19:45 Urine Protein 30 mg/dL (<30 mg/dL) H 02/21/18 19:45 Urine Glucose (UA) Negative mg/dL (NEGATIVE) 02/21/18 19:45 Urine Ketones Negative mg/dL (NEGATIVE) 02/21/18 19:45 Urine Blood Moderate (NEGATIVE) H 02/21/18 19:45 Urine Nitrate Positive (NEGATIVE) H 02/21/18 19:45 Urine Bilirubin Negative (NEGATIVE) 02/21/18 19:45 Urine Urobilinogen 0.2 E.U./dL (<1 E.U./dL) 02/21/18 19:45 Ur Leukocyte Esterase Small [place]/uL (NEGATIVE) H 02/21/18 19:45 Urine RBC 25 - 30 /hpf (0-2) 02/21/18 19:45 Urine WBC 25 - 30 /hpf (0-6) 02/21/18 19:45 Ur Epithelial Cells 6 - 8 /hpf (0-5) 02/21/18 19:45 Urine Bacteria Few (NEG) 02/21/18 19:45 Urine HCG, Qual Negative (NEGATIVE) 02/22/18 14:00 Urine Opiates Screen Negative (NEGATIVE) 02/22/18 00:20 Urine Methadone Screen Negative (NEGATIVE) 02/22/18 00:20 Ur Barbiturates Screen Negative (NEGATIVE) 02/22/18 00:20 Ur Phencyclidine Scrn Negative (NEGATIVE) 02/22/18 00:20 Ur Amphetamines Screen Negative (NEGATIVE) 02/22/18 00:20 U Benzodiazepines Scrn Negative (NEGATIVE) 02/22/18 00:20 U Oth Cocaine Metabols Negative (NEGATIVE) 02/22/18 00:20 U Cannabinoids Screen Negative (NEGATIVE) 02/22/18 00:20 Alcohol, Quantitative 17 mg/dL (0-10) H 02/21/18 19:55 Hepatitis A IgM Ab Negative (NEGATIVE) 02/21/18 19:55 Hep Bs Antigen Negative (NEGATIVE) 02/21/18 19:55 Hep B Core IgM Ab Negative (NEGATIVE) 02/21/18 19:55 Hepatitis C Antibody Negative (NEGATIVE) 02/21/18 19:55 - Hospital Course Hospital Course: Patient is a 27 year old female with hx of endometriosis who was admitted for evaluation and treatment of epigastric and lower abdominal pain. With the use of physical examinations, lab work, and imaging the patient was diagnosed with and treated for pancreatitis secondary to ETOH abuse. During their hospital stay the patient was seen by gastroenterology (Dr. Avila) and their recommendations were both appreciated and utilized in the care or this patient. During their hospital stay the patient underwent a CT of the abdomen and pelvis and abdominal ultrasound which were reviewed, appreciated, and utilized in the management of the patients clinical course. The CT of the abdomen and pelvis showed a right paracolic stranding is with a small amount of free fluid within the right paracolic gutter, colonic wall thickening, mild wall thickening of the bladder, mild stranding of the fat surrounding the bladder, a small amount of free fluid within the pelvis, and mild hypodense fatty infiltration of the liver. The abdominal ultrasound revealed no acute findings. Patient was treated with intravenous fluids, antibiotics, analgesics amongst other empiric/ therapeutic medications. Patient is tolerating diet and at this time she is medically stable for discharge. Patient understands and appreciates discharge plan. Patient instructed to follow up with primary care physicians and referrals within three to five days from discharge. Furthermore, the patient is instructed to take medications as prescribed and to return to emergency room for evaluation of intractable headache, fever, chills, dizziness, chest pain, shortness of breath, abdominal pain, nausea, vomiting, diarrhea, constipation, and urinary symptoms. This is a brief summary of the patients hospital course. Please see patient chart for full details. Discharge Exam - Head Exam Head Exam: ATRAUMATIC, NORMOCEPHALIC - Additional Findings Additional findings: - Constitutional Appears: Non-toxic, No Acute Distress - Head Exam Head Exam: ATRAUMATIC, NORMOCEPHALIC - Eye Exam Eye Exam: EOMI, PERRL. absent: Conjunctival injection, Nystagmus, Scleral icterus - ENT Exam ENT Exam: Mucous Membranes Moist - Respiratory Exam Respiratory Exam: Clear to Auscultation Bilateral - Cardiovascular Exam Cardiovascular Exam: RRR, +S1, +S2 - GI/Abdominal Exam GI & Abdominal Exam: NTTP, bowel sounds present x 4 - Extremities Exam Extremities exam: Positive for: normal inspection. Negative for: calf tenderness, pedal edema - Back Exam Back exam: NORMAL INSPECTION. absent: CVA tenderness (L), CVA tenderness (R) - Neurological Exam Neurological exam: Alert, Oriented x3 - Psychiatric Exam Psychiatric exam: Normal Affect, Normal Mood - Skin Skin Exam: Dry, Normal Color, Warm Discharge Plan - Follow Up Plan Condition: GOOD Disposition: HOME/ ROUTINE Patient education suggested?: Yes Additional Instructions: Patient Instructions: Follow up with [facility] in [place], [place] within three to five days from discharge. Appointment date and time: 03/02/18 and 9:00am with Octavio Moseley . Return to the emergency room for evaluation of intractable headache, fever, chills, dizziness, chest pain, shortness of breath, abdominal pain, nausea, vomiting, diarrhea, constipation, and urinary symptoms. Referrals: PCP,NO [Primary Care Provider] - Follow up with primary <Agapito Fischer - Last Filed: 02/23/18 15:25> Provider - Provider Date of Admission: 02/21/18 23:00 Attending physician: Agapito Fischer MD Primary care physician: NO PRIMARY CARE PROVIDER Hospital Course - Lab Results Lab Results: Most Recent Lab Values WBC 7.6 10^3/ul (4.5-11.0) D 02/23/18 07:00 RBC 3.19 10^6/uL (3.5-6.1) L 02/23/18 07:00 Hgb 11.3 g/dL (12.0-16.0) L 02/23/18 07:00 Hct 32.9 % (36.0-48.0) L 02/23/18 07:00 MCV 103.1 fl (80.0-105.0) 02/23/18 07:00 MCH 35.4 pg (25.0-35.0) H 02/23/18 07:00 MCHC 34.3 g/dl (31.0-37.0) 02/23/18 07:00 RDW 13.8 % (11.5-14.5) 02/23/18 07:00 Plt Count 164 10^3/uL (120.0-450.0) 02/23/18 07:00 MPV 10.4 fl (7.0-11.0) 02/23/18 07:00 Gran % 76.1 % (50.0-68.0) H 02/23/18 07:00 Lymph % (Auto) 13.6 % (22.0-35.0) L 02/23/18 07:00 Juncos % (Auto) 7.8 % (1.0-6.0) H 02/23/18 07:00 Eos % (Auto) 2.4 % (1.5-5.0) 02/23/18 07:00 Baso % (Auto) 0.1 % (0.0-3.0) 02/23/18 07:00 Gran # 5.75 (1.4-6.5) 02/23/18 07:00 Lymph # (Auto) 1.0 (1.2-3.4) L 02/23/18 07:00 Jun[place] # (Auto) 0.6 (0.1-0.6) 02/23/18 07:00 Eos # (Auto) 0.2 (0.0-0.7) 02/23/18 07:00 Baso # (Auto) 0.01 K/mm3 (0.0-2.0) 02/23/18 07:00 Sodium 139 mmol/L (132-148) 02/23/18 06:30 Potassium 3.5 mmol/L (3.6-5.0) L 02/23/18 06:30 Chloride 104 mmol/L (98-107) 02/23/18 06:30 Carbon Dioxide 27 mmol/L (21-33) 02/23/18 06:30 Anion Gap 12 (10-20) 02/23/18 06:30 BUN < 2 mg/dL (7-21) L 02/23/18 06:30 Creatinine 0.6 mg/dl (0.7-1.2) L 02/23/18 06:30 Est GFR ( Amer) > 60 02/23/18 06:30 Est GFR (Non-Af Amer) > 60 02/23/18 06:30 Random Glucose 96 mg/dL (70-110) 02/23/18 06:30 Calcium 8.6 mg/dL (8.4-10.5) 02/23/18 06:30 Magnesium 1.7 mg/dL (1.7-2.2) 02/22/18 10:00 Total Bilirubin 0.5 mg/dL (0.2-1.3) 02/23/18 06:30 AST 67 U/L (14-36) H D 02/23/18 06:30 ALT 35 U/L (7-56) 02/23/18 06:30 Alkaline Phosphatase 63 U/L (38-126) 02/23/18 06:30 Total Protein 6.7 g/dL (5.8-8.3) 02/23/18 06:30 Albumin 3.8 g/dL (3.0-4.8) 02/23/18 06:30 Globulin 2.9 gm/dL 02/23/18 06:30 Albumin/Globulin Ratio 1.3 (1.1-1.8) 02/23/18 06:30 Triglycerides 54 mg/dL (35-160) 02/22/18 09:30 Cholesterol 173 mg/dL (130-200) 02/22/18 09:30 LDL Cholesterol Direct 64 mg/dL (0-129) 02/22/18 09:30 HDL Cholesterol 96 mg/dL (29-60) H 02/22/18 09:30 Lipase 1888 U/L (23-300) H 02/21/18 19:55 Urine Color Yellow (YELLOW) 02/21/18 19:45 Urine Appearance Turbid (CLEAR) 02/21/18 19:45 Urine pH 6.5 (4.7-8.0) 02/21/18 19:45 Ur Specific Hume 1.025 (1.005-1.035) 02/21/18 19:45 Urine Protein 30 mg/dL (<30 mg/dL) H 02/21/18 19:45 Urine Glucose (UA) Negative mg/dL (NEGATIVE) 02/21/18 19:45 Urine Ketones Negative mg/dL (NEGATIVE) 02/21/18 19:45 Urine Blood Moderate (NEGATIVE) H 02/21/18 19:45 Urine Nitrate Positive (NEGATIVE) H 02/21/18 19:45 Urine Bilirubin Negative (NEGATIVE) 02/21/18 19:45 Urine Urobilinogen 0.2 E.U./dL (<1 E.U./dL) 02/21/18 19:45 Ur Leukocyte Esterase Small [place]/uL (NEGATIVE) H 02/21/18 19:45 Urine RBC 25 - 30 /hpf (0-2) 02/21/18 19:45 Urine WBC 25 - 30 /hpf (0-6) 02/21/18 19:45 Ur Epithelial Cells 6 - 8 /hpf (0-5) 02/21/18 19:45 Urine Bacteria Few (NEG) 02/21/18 19:45 Urine HCG, Qual Negative (NEGATIVE) 02/22/18 14:00 Urine Opiates Screen Negative (NEGATIVE) 02/22/18 00:20 Urine Methadone Screen Negative (NEGATIVE) 02/22/18 00:20 Ur Barbiturates Screen Negative (NEGATIVE) 02/22/18 00:20 Ur Phencyclidine Scrn Negative (NEGATIVE) 02/22/18 00:20 Ur Amphetamines Screen Negative (NEGATIVE) 02/22/18 00:20 U Benzodiazepines Scrn Negative (NEGATIVE) 02/22/18 00:20 U Oth Cocaine Metabols Negative (NEGATIVE) 02/22/18 00:20 U Cannabinoids Screen Negative (NEGATIVE) 02/22/18 00:20 Alcohol, Quantitative 17 mg/dL (0-10) H 02/21/18 19:55 Hepatitis A IgM Ab Negative (NEGATIVE) 02/21/18 19:55 Hep Bs Antigen Negative (NEGATIVE) 02/21/18 19:55 Hep B Core IgM Ab Negative (NEGATIVE) 02/21/18 19:55 Hepatitis C Antibody Negative (NEGATIVE) 02/21/18 19:55 Attending/Attestation - Attestation I have personally seen and examined this patient.: Yes I have fully participated in the care of the patient.: Yes I have reviewed all pertinent clinical information, including history, physical exam and plan: Yes Notes (Text): 02/23/18 15:20 Attending note; Patient seen and examined with resident. Patient is a 27-year-old female admitted with acute alcoholic pancreatitis. Treated with IV fluids, pain medication. Started on liquid diet. Currently tolerating soft diet. Complete alcohol cessation is strongly advised. Lipid profile is normal. Ultrasound is negative for gallstones. Patient recently moved from [place]. Strongly advised to follow-up with [facility] emergency department department for insurance information. Upon discharge patient will follow-up with [facility].
[2018-02-23 15:50] VITALS: BP 120/95; PULSE 79; TEMP 98.1
== END 2018-02-23 17:58 | disposition home or self-care (01) | DRG 204 ==
LOC: ED 18:25 → ERH 23:00 → 5RSO 02-22 02:01
PROVIDERS: ADMIT Internal Medicine; ATTEND Internal Medicine
DX: K85.20 Alcohol induced acute pancreatitis without necrosis or infection (principal); F10.10 Alcohol abuse, uncomplicated; K52.9 Noninfective gastroenteritis and colitis, unspecified; N30.90 Cystitis, unspecified without hematuria; K29.80 Duodenitis without bleeding; N80.9 Endometriosis, unspecified; F17.200 Nicotine dependence, unspecified, uncomplicated; K76.0 Fatty (change of) liver, not elsewhere classified; Y90.0 Blood alcohol level of less than 20 mg/100 ml